=== PATIENT | female | born 1990 | race Caucasian/White ===

== ENCOUNTER 2017-03-15 04:13 | Emergency (ER) | payer OTHER ==
[~2017-03-15] VITALS: Ht 167.6 cm; Wt 73.0 kg
[~2017-03-15 04:13] MED LIST: IBUP-103 PO; OMEP40CA PO; ONDA4TAB46 PO
[2017-03-15 04:19] VITALS: TEMP 36.7; Ht 167.6 cm; Wt 73.0 kg
[2017-03-15] MEDS ORDERED: ONDANSETRON INJ 2 MG/ML 2 ML VIAL IV STA (04:28)
[2017-03-15] MEDS ORDERED: CEFTRIAXONE SOD INJ 1 GM ADDVIAL IV STA (04:28)
[2017-03-15 04:49] LABS: BASO % 0.2 %; BASO ABS # 0.03 K/uL (0-0.2); COMPLETE YES; EOS % 0.6 %; HEMATOCRIT 41.3 % (37-47); IG% 0.4 %; LYMPH % 16.7 %; LYMPH ABS # 2.06 K/uL (1.2-3.4); MEAN CORPUSCULAR HGB CONC 33.7 g/dl (32-36); MEAN PLATELET VOLUME 8.9 fL (7.4-10.4); MONO % 4.9 %; NEUT % 77.2 %; PLATELET COUNT 283 K/uL (130-400); RED BLOOD COUNT 4.49 M/uL (4.2-5.4); WHITE BLOOD COUNT 12.33 K/uL (4.8-10.8)
[2017-03-15] MEDS ORDERED: SODIUM CHLORIDE 0.9% 1000ML 1,000 ML IV STA ×4 (04:54→06:47)
[2017-03-15] MEDS ORDERED: RANI1TAB77 PO (04:56)
[2017-03-15] MEDS ORDERED: ALPR-411 PO (04:56)
[2017-03-15] MEDS ORDERED: FLUO20CA35 PO (04:56)
[2017-03-15] MEDS ORDERED: ONDA4TAB46 PO (04:57)
[2017-03-15 05:06] LABS: BUN/CREATININE RATIO 18.7 (10-20); CALCIUM 8.7 mg/dl (8.5-10.1); CREATININE 0.85 mg/dl (0.60-1.20); POTASSIUM 3.3 mmol/L (3.5-5.1)
[2017-03-15 05:23] LABS: MANUAL MICROSCOPIC REQUIRED? NO; REVIEW REQ? NO; URINE APPEARANCE TURBID (CLEAR); URINE BILIRUBIN NEG (NEG); URINE COLOR YELLOW; URINE EPITHELIAL CELL AUTO >30 /lpf (0-5); URINE NITRITE POS (NEG); URINE PH 6.5 (4.5-7.5); URINE SPECIFIC GRAVITY 1.022 (1.000-1.030); UROBILINOGEN NEG (NEG); ZZUR CULT IF INDIC CLEAN CATCH YES
[2017-03-15] MEDS ORDERED: DiphenhydrAMINE HCL 50 MG/ML VIAL ONE (05:44)
[2017-03-15] MEDS ORDERED: LORAZEPAM 2 MG/ML 1 ML VIAL IV STA (05:45)
[2017-03-15] MEDS ORDERED: POTASSIUM CHLORIDE 10 MEQ TABCR PO STA (05:46)
[2017-03-15] MEDS ORDERED: LORAZEPAM 2 MG/ML 1 ML VIAL ONE (05:46)
[2017-03-15] MEDS ORDERED: ATIVAN 1MG HOMEPACK PO ONE (06:30)
[2017-03-15] MEDS ORDERED: ONDANSETRON HOME PACK 4MG OD TAB PO ONE (06:30)
[2017-03-15] MEDS ORDERED: CEPHALEXIN 500MG HOME PACK 1 EA BTL PO ONE (06:30)
[2017-03-15] MEDS ORDERED: CEFD1CAP14 PO (06:46)
[2017-03-15] MEDS ORDERED: PHEN-876 PO (06:46)
[2017-03-15 07:52] VITALS: BP 125/79; PULSE 110; O2SAT 97
--- NOTE | 2017-03-15 13:58 | EMERGENCY ROOM VISIT NOTE ---
ED Visit Note Received the patient this morning in signout from Anuja Day PA-C. I did review all records. Chem states she had everything ready to go, however due to the patient's elevated lactic acid last night, she would like to run 3 L of fluid and rechecked the lactic acid at that time. She states as long as the lactic acid is normal, the patient should be okay to be discharged. The lactic acid is elevated, the patient is to consider admission into the hospital for evaluation and management of her urinary tract infection/possible pyelonephritis. Misinformed from the nurse that the patient's repeat lactic acid was 1.64. This was back to the normal range, and the nurse also said she suspected that the previous lactic acid was drawn with a tourniquet on the arm, which could have skewed the results. The patient is feeling fine, and would like to be discharged at this time. I did discuss the results with the patient and discharge instructions. The patient was discharged home in good condition.
--- NOTE | 2017-03-15 21:59 | EMERGENCY ROOM VISIT NOTE ---
History First contact with patient: 04:21 Chief Complaint: URINARY SYMPTOMS Stated Complaint: UTI,VOMITING Nursing Triage Summary: pt c/o uti sx for a couple days then they went away and came back, frequency and burning, and pain. pt woke this 0200 with n/v and shaking History of Present Illness The patient is a 26 year old female who presents to the Emergency Room with complaints of nausea, vomiting, subjective fever and chills with urinary symptoms for the past 3 days. Vomiting and fever and chills started tonight. Patient had a bladder infection last month and was given Cipro. Patient denies chest pain, dyspnea, back pain, flank pain, diarrhea, . Review of Systems See HPI for pertinent positives & negatives. A total of 10 systems reviewed and were otherwise negative. Past Medical/Surgical History Concussion Social History Smoking Status: Never Smoker Alcohol Use: none Drug Use: none Current/Historical Medications Scheduled Cefdinir (Omnicef), 300 MG PO Q12H Fluoxetine (Prozac), 20 MG PO DAILY Phenazopyridine HCl (Pyridium), 200 MG PO TID Ranitidine HCl (Ranitidine [address]), 150 MG PO BID Scheduled PRN Alprazolam (Xanax), 0.25 MG PO DAILY PRN for Anxiety Ondansetron Hcl (Zofran), 4 MG PO Q6 PRN for Nausea Physical Exam Vital Signs Date Time Temp Pulse Resp B/P (MAP) Pulse Ox O2 Delivery O2 Flow Rate FiO2 03/15/17 07:52 110 16 125/79 97 03/15/17 05:57 96 22 138/87 98 Room Air 03/15/17 04:19 36.7 98 18 164/98 99 Room Air Physical Exam VITALS: Vitals are noted on the nurse's note and reviewed by myself. Vital signs hypertensive GENERAL: Pleasant female, in no acute distress, nondiaphoretic, well-developed well-nourished. SKIN: The skin was without rashes, erythema, edema, or bruising. There is no tenting of the skin. Capillary reflex less than 2 seconds. HEAD: Normocephalic atraumatic. EARS: External auditory canals clear, tympanic membranes pearly maxwell without erythema or effusion bilaterally. EYES: Pupils equal round and reactive to light and accommodation. Conjunctivae without injection, sclerae without icterus. Extraocular movements intact. NOSE: Patent, turbinates without inflammation or discharge. MOUTH: Mucous membranes mildly dry. Pharynx without erythema or exudate. Uvula midline. Airway patent. Tongue does not deviate. NECK: Supple without nuchal rigidity. No lymphadenopathy. No thyromegaly. Cervical spine is nontender. No JVD. HEART: Regular rate and rhythm without murmurs gallops or rubs. LUNGS: Clear to auscultation bilaterally without wheezes, rales or rhonchi. No dullness to percussion. No retractions or accessory muscle use. ABDOMEN: Positive bowel sounds x 4. Normal tympanic percussion. Soft, nontender, without masses or organomegaly. Beckman sign negative. No guarding or rebound tenderness. No CVA tenderness MUSCULOSKELETAL: No muscle atrophy, erythema, or edema noted. NEURO: Patient was alert and oriented to person place and time. Normal sensation to light and sharp touch. No focal neurological deficits. Medical Decision & Procedures Laboratory Results 03/15/17 04:35 Red Blood Count 4.49, Mean Corpuscular Volume 92.0, Mean Corpuscular Hemoglobin 31.0, Mean Corpuscular Hemoglobin Concent 33.7, Mean Platelet Volume 8.9, Neutrophils (%) (Auto) 77.2, Lymphocytes (%) (Auto) 16.7, Monocytes (%) (Auto) 4.9, Eosinophils (%) (Auto) 0.6, Basophils (%) (Auto) 0.2, Neutrophils # (Auto) 9.51, Lymphocytes # (Auto) 2.06, Monocytes # (Auto) 0.61, Eosinophils # (Auto) 0.07, Basophils # (Auto) 0.03 03/15/17 04:35 Test 03/15/17 04:21 03/15/17 04:30 03/15/17 04:35 03/15/17 07:33 Urine Test NEG (NEG) Urine Color YELLOW Urine Appearance TURBID (CLEAR) Urine pH 6.5 (4.5-7.5) Urine Specific [place] 1.022 (1.000-1.030) Urine Protein 2+ (NEG) Urine Glucose (UA) NEG (NEG) Urine Ketones NEG (NEG) Urine Occult Blood 1+ (NEG) Urine Nitrite POS (NEG) Urine Bilirubin NEG (NEG) Urine Urobilinogen NEG (NEG) Urine Leukocyte Esterase LARGE (NEG) Urine WBC (Auto) >30 /hpf (0-5) Urine RBC (Auto) >30 /hpf (0-4) Urine Hyaline Casts (Auto) 5-10 /lpf (0-5) Urine Epithelial Cells (Auto) >30 /lpf (0-5) Urine Bacteria (Auto) 4+ (NEG) White Blood Count 12.33 K/uL (4.8-10.8) Red Blood Count 4.49 M/uL (4.2-5.4) Hemoglobin 13.9 g/dL (12.0-16.0) Hematocrit 41.3 % (37-47) Mean Corpuscular Volume 92.0 fL (80-100) Mean Corpuscular Hemoglobin 31.0 pg (25-34) Mean Corpuscular Hemoglobin Concent 33.7 g/dl (32-36) Platelet Count 283 K/uL (130-400) Mean Platelet Volume 8.9 fL (7.4-10.4) Neutrophils (%) (Auto) 77.2 % Lymphocytes (%) (Auto) 16.7 % Monocytes (%) (Auto) 4.9 % Eosinophils (%) (Auto) 0.6 % Basophils (%) (Auto) 0.2 % Neutrophils # (Auto) 9.51 K/uL (1.4-6.5) Lymphocytes # (Auto) 2.06 K/uL (1.2-3.4) Monocytes # (Auto) 0.61 K/uL (0.11-0.59) Eosinophils # (Auto) 0.07 K/uL (0-0.5) Basophils # (Auto) 0.03 K/uL (0-0.2) RDW Standard Deviation 41.7 fL (36.4-46.3) RDW Coefficient of Variation 12.3 % (11.5-14.5) Immature Granulocyte % (Auto) 0.4 % Immature Granulocyte # (Auto) 0.05 K/uL (0.00-0.02) Anion Gap 12.0 mmol/L (3-11) Est Creatinine Clear Calc Drug Dose 104.3 ml/min Estimated GFR () 111.2 Estimated GFR (Non- 95.9 BUN/Creatinine Ratio 18.7 (10-20) Calcium Level 8.7 mg/dl (8.5-10.1) Bedside Lactic Acid Venous 1.62 mmol/L (0.90-1.70) Medications Administered Medications (Trade) Dose Ordered Sig/Richard Route Start Time Stop Time Status Last Admin Dose Admin Ondansetron HCl (Zofran Inj) 4 mg NOW STAT IV 03/15/17 04:28 03/15/17 04:30 DC 03/15/17 05:00 4 MG Ceftriaxone Sodium (Rocephin Inj) 1 gm NOW STAT IV 03/15/17 04:28 03/15/17 04:30 DC 03/15/17 05:00 1 GM Sodium Chloride 1,000 ml @ 999 mls/hr Q1H1M STAT IV 03/15/17 04:54 03/15/17 05:54 DC 03/15/17 05:00 999 MLS/HR Sodium Chloride 1,000 ml @ 999 mls/hr Q1H1M STAT IV 03/15/17 05:37 03/15/17 06:37 DC 03/15/17 06:00 999 MLS/HR Lorazepam (Ativan Inj) 1 mg NOW STAT IV 03/15/17 05:45 03/15/17 05:46 DC 03/15/17 05:54 1 MG Potassium Chloride (Klor-Con M10) 20 meq NOW STAT PO 03/15/17 05:46 03/15/17 05:47 DC 03/15/17 05:59 20 MEQ ED Course Prior records/ancillary studies reviewed. Triage Nursing notes reviewed. Additional history obtained from family. The patient's history was concerning for vomiting and urinary symptoms. Differential diagnosis: Etiologies such as UTI, pyelonephritis, gastritis, obstruction, infections, as well as others were entertained. Physical examination findings: As above. ER treatment provided: IV fluids, Zofran, Rocephin On reassessment the patient felt better. Diagnostics interpreted by me: The labs revealed leukocytosis, hypokalemia and urine consistent with infections and for culture The nurse accidentally ran a lactic acid and this was elevated. Repeat was ordered and patient was signed out to Anya Denny PA-C pending repeat lactic acid and 3 L of IV fluids. Repeat was improved. This most likely was from dehydration and from laboratory area. Patient had no signs of sepsis. She is well-appearing. She is afebrile and nontoxic. She had no CVA tenderness. Exam and history seem consistent with early pyelonephritis with vomiting. Patient was offered admission and declined. I felt this is reasonable. She is afebrile and nontoxic and drinking fluids and eating. Patient became anxious is given Ativan. She felt much better. Patient had no CVA tenderness. She felt much better after being medicated as above. She was started on antibiotics. Urine culture sent. She is advised to take medications as directed and to follow-up family care in a few days or here in the ER sooner for abdominal pain, fevers, vomiting, back pain, worsening signs or symptoms or as needed. By the evaluation outlined above emergent etiologies such as obstruction, electrolyte abnormality, as well as others were deemed relatively unlikely. The pt informed about the findings as listed above. All questions were answered and pleased with the treatment. Return instructions were outlined and the patient was discharged in stable condition. Outpatient prescription management: Marcos Smart Referral: The patient was referred back to their primary care physician for follow-up in 2 to 3 days for a recheck of the current condition. Case reviewed with my attending. Medical Decision As above Medication Reconcilliation Current Medication List: was personally reviewed by me Blood Pressure Screening Patient's blood pressure: Normal blood pressure Impression Primary Impression: Pyelonephritis Additional Impression: Vomiting Departure Information Dispostion Home / Self-Care Condition GOOD Prescriptions Phenazopyridine HCl (Pyridium) 200 Mg Tab 200 MG PO TID for 2 Days, #6 TAB Prov: Kelsey Day .[place] 03/15/17 Cefdinir (Omnicef) 300 Mg Cap 300 MG PO Q12H for 10 Days, #20 CAP Prov: Kelsey Day PA-C 03/15/17 Referrals Lucas Soares III, M.D. (PCP) Patient Instructions My [facility] Additional Instructions DO NOT drive, drink alcohol, operate machinery, or perform dangerous activities today. You were given medications in the ER that can affect your ability to safely function or operate a vehicle. Omnicef 300 mg: Take one pill 2 daily for 10 days for your infection. All antibiotics can cause diarrhea. If this occurs and you feel worse or it does not resolve in 1-2 days follow up with your doctor or return to the Emergency Department as this could be signs of serious underlying problems. Any medication can cause an allergic reaction, stop the pills immediately and return to the ER for rash, hives, breathing difficulties, or swelling. Pyridium 200mg: Take one pill three times daily as needed for urinary discomfort. This medication will turn your urine orange. This is normal and nothing to be concerned about. Zofran 4 mg: Take one every six hours as needed for nausea. Avoid alcohol, operating machinery or dangerous equipment, working on ladders or roofs, DRIVING , or situations where being under the influence may be dangerous. Ibuprofen(Motrin, Advil) may be used for fever or pain. Use 600mg every six hours as needed. Take with food. Avoid using more than 2400mg in a 24 hour period. Do not use 2400mg per day for more than three consecutive days without physician direction. Prolonged inappropriate use can lead to stomach upset or ulcers. (AND/OR) Acetaminophen(Tylenol) may be used for fever or pain. Use 1000mg every six hours as needed. Avoid using more than 3000mg in a 24 hour period. Rest and drink plenty of fluids as tolerated. Slow sips of water or sports drinks are recommended instead of large amounts all at once. Continue current medications. Once your stomach is settled start with a clear liquid diet (jello, soup broth, etc.) and then advance as tolerated. You should avoid full, heavy meals for about 24 hrs from the time your symptoms resolved. Return to the ER immediately for worsening or persistent abdominal/back pain, vomiting, fevers, worsening of your condition, or as needed. Follow up with your primary physician within 2-3 days for a recheck of the current condition. Problem Qualifiers Additional Impression: Vomiting Vomiting type: unspecified Vomiting Intractability: non-intractable Nausea presence: with nausea Qualified Codes: R11.2 - Nausea with vomiting, unspecified
--- NOTE | 2017-03-17 12:38 | Pharmacy Progress Note ---
ED Pharmacist Culture FollowUp Date of Service: Mar 17, 2017. Patient was sent home with a prescription for omnicef 300mg BID X 10 days, which should cover the E. Coli growing from the patient's urine culture.
[2017-03-19] MEDS ORDERED: ONDA8TAB62 SL (09:52)
[2017-03-19] MEDS ORDERED: CPR500 PO (09:52)
== END 2017-03-15 07:52 | disposition home or self-care (01) ==
LOC: C.EDB 04:14
DX: N12 Tubulo-interstitial nephritis, not specified as acute or chronic (principal); E86.0 Dehydration; F41.9 Anxiety disorder, unspecified; Z79.899 Other long term (current) drug therapy

== ENCOUNTER 2017-03-18 08:46 | Observation (INO) | payer OTHER ==
[~2017-03-18] VITALS: Ht 167.6 cm; Wt 73.8 kg
[~2017-03-18 08:46] MED LIST changes: +ALPR-411 PO; +CEFD1CAP14 PO; +FLUO20CA35 PO; -IBUP-103 PO; -OMEP40CA PO; +PHEN-876 PO; +RANI1TAB77 PO
[2017-03-18] MEDS ORDERED: PHEN-939 PO (09:07)
[2017-03-18] MEDS ORDERED: ONDANSETRON INJ 2 MG/ML 2 ML VIAL IV STA ×2 (09:26→12:19)
[2017-03-18] MEDS ORDERED: SODIUM CHLORIDE 0.9% 1000ML 1,000 ML IV STA (09:26)
[2017-03-18] MEDS ORDERED: CEFTRIAXONE SOD INJ 1 GM ADDVIAL IV STA (09:26)
[2017-03-18] MEDS ORDERED: MoRPHine SULFATE 4 MG/ML 1 ML CARP\\VIAL IV STA ×2 (09:26→13:35)
[2017-03-18 09:44] LABS: PREG INTERNAL NEGATIVE QC NEG CLEAR BACKGROUND; PREG INTERNAL POSITIVE QC POS CONTROL LINE
[2017-03-18 09:49] LABS: URINE APPEARANCE CLEAR (CLEAR); URINE BILIRUBIN NEG (NEG); URINE COLOR DK YELLOW; URINE EPITHELIAL CELL AUTO >30 /lpf (0-5); URINE NITRITE POS (NEG); URINE SPECIFIC GRAVITY 1.021 (1.000-1.030); UROBILINOGEN NEG (NEG); ZZUR CULT IF INDIC CLEAN CATCH NO
[2017-03-18 09:55] LABS: BASO % 0.7 %; BASO ABS # 0.04 K/uL (0-0.2); COMPLETE YES; HEMATOCRIT 40.6 % (37-47); IG% 0.2 %; LYMPH % 30.1 %; LYMPH ABS # 1.85 K/uL (1.2-3.4); MEAN CELL VOLUME 92.3 fL (80-100); MEAN CORPUSCULAR HGB CONC 32.5 g/dl (32-36); MEAN PLATELET VOLUME 9.4 fL (7.4-10.4); MONO % 6.5 %; NEUT % 61.5 %; PLATELET COUNT 280 K/uL (130-400); WHITE BLOOD COUNT 6.15 K/uL (4.8-10.8)
[2017-03-18 10:03] LABS: MANUAL MICROSCOPIC REQUIRED? NO; REVIEW REQ? NO
[2017-03-18 10:12] LABS: BUN/CREATININE RATIO 20.7 (10-20); C-REACTIVE PROTEIN 0.55 mg/dl (0-0.29); CREATININE 0.67 mg/dl (0.60-1.20); MAGNESIUM 2.2 mg/dl (1.8-2.4); POTASSIUM 3.9 mmol/L (3.5-5.1)
[2017-03-18 10:16] LABS: ALB/GLOB RATIO 1.2 (0.9-2); CKMB/CK RATIO 0.6 (0-3.0)
--- NOTE | 2017-03-18 10:35 | DIAGNOSTIC IMAGING REPORT ---
RENAL ULTRASOUND CLINICAL HISTORY: Flank pain. Urinary symptoms. COMPARISON STUDY: CT of the abdomen and pelvis March 28, 2016. TECHNIQUE: Sonography of the kidneys and the urinary bladder was performed. FINDINGS: The right kidney measures 11.3 x 4.3 x 5.7 cm and the left measures 11.1 x 5.7 x 4.7 cm. There is no hydronephrosis. No calculi or masses are identified by sonography. Renal echogenicity, size and cortical thickness are normal. Both ureteral jets were identified. IMPRESSION: Normal renal ultrasound. No hydronephrosis. Electronically signed by: Houston Romero M.D. 03/18/2017 10:34 AM Dictated Date/Time: 03/18/2017 10:33 AM
[2017-03-18] MEDS ORDERED: ACETAMINOPHEN 500 MG TAB PO STA (11:19)
--- NOTE | 2017-03-18 13:34 | DIAGNOSTIC IMAGING REPORT ---
CT SCAN OF THE BRAIN WITHOUT IV CONTRAST CLINICAL HISTORY: Headache. Vomiting. Head injury. COMPARISON STUDY: CT of the brain dated 03/28/2016. TECHNIQUE: Unenhanced axial CT scan of the brain is performed from the vertex to the skull base. A dose lowering technique was utilized adhering to the principles of ALARA. CT DOSE: 638.56 mGycm FINDINGS: Brain parenchyma: The brain parenchyma is normal in appearance. There is no hemorrhage, mass effect, or evidence of acute territorial ischemia by CT criteria. Leon-white matter is preserved. No extra-axial fluid collection is seen. Ventricles, sulci, cisterns: Normal in configuration. Intracranial vasculature: The visualized intracranial vasculature at the skull base is normal in appearance. Calvarium: There is no depressed calvarial fracture. Sinuses and mastoids: The visualized paranasal sinuses are clear. The mastoid air cells are well pneumatized. Orbits: The bony orbits are grossly intact. IMPRESSION: No acute intracranial abnormality. Electronically signed by: Arsalan Welch M.D. 03/18/2017 1:32 PM Dictated Date/Time: 03/18/2017 1:30 PM
[2017-03-18] MEDS ORDERED: KETOROLAC TROMETHAMINE 15 MG/ML VIAL IV. PRN (15:00)
[2017-03-18] MEDS ORDERED: ALPRAZOLAM 0.5 MG TAB PO PRN (15:00)
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
[2017-03-18] MEDS ORDERED: IV FLUIDS COMPLETED PRN (16:15)
[2017-03-18 17:20] VITALS: BP 141/95; PULSE 82; TEMP 36.8; O2SAT 98; Ht 167.6 cm; Wt 73.8 kg
[2017-03-18] MEDS: ONDANSETRON INJ 2 MG/ML 2 ML VIAL IV PRN (18:03)
[2017-03-18] MEDS: SODIUM CHLORIDE 0.9% 1000ML 1,000 ML IV SCH (18:04)
[2017-03-18] MEDS: KETOROLAC TROMETHAMINE 30 MG/ML VIAL IV PRN (18:04)
--- NOTE | 2017-03-18 18:54 | EMERGENCY ROOM VISIT NOTE ---
History First contact with patient: : Chief Complaint: NAUSEA Stated Complaint: HEADACHE, NAUSEA & VOMITING Nursing Triage Summary: pt to the ED after being seen here on wednesday dx with kidney infection and has been taking ABX since then, today pt is c/o continued back pain DAWKINS and nausea History of Present Illness The patient is a 26 year old female who presents to the Emergency Room via private vehicle with complaints of "headache, nausea and vomiting". The patient states that she was seen her on Wednesday, and diagnosed with pyelonephritis. She states that she was doing well with the Omnicef and Zofran , until today she noted that she had return of her symptoms, to include the urinary symptoms, as well as additionally in an intense headache. She also notes that today while at the gas station she forgot how to pump gas. She was diagnosed with concussion about 3 weeks ago, after bumping heads with somebody well out tubing. Review of Systems A complete 10-point Review of Systems was discussed with the patient, with pertinent positives and negatives listed in the History of Present Illness. All remaining Review of Systems questions can be considered negative unless otherwise specified. Past Medical/Surgical History Medical Problems: (1) Acid reflux (2) Anxiety Social History Smoking Status: Unknown if Ever Smoked Alcohol Use: none Drug Use: none Occupation Status: employed Current/Historical Medications Scheduled Cefdinir (Omnicef), 300 MG PO Q12H Fluoxetine (Prozac), 20 MG PO DAILY Phenazopyridine Hcl (Pyridium), 1 TAB PO Q8 Ranitidine HCl (Ranitidine [address]), 150 MG PO BID Scheduled PRN Alprazolam (Xanax), 0.25 MG PO DAILY PRN for Anxiety Physical Exam Vital Signs Date Time Temp Pulse Resp B/P (MAP) Pulse Ox O2 Delivery O2 Flow Rate FiO2 03/18/17 14:01 76 03/18/17 13:33 93 16 121/84 97 03/18/17 09:56 88 03/18/17 09:52 97 Room Air 03/18/17 09:52 84 17 137/92 96 Room Air 03/18/17 08:55 36.8 98 20 129/100 97 Pain Rating (0-10): 5.0 Physical Exam VITAL SIGNS - Vital signs and nursing notes were reviewed. Stable. GENERAL -26-year-old female appearing her stated age who is in no acute distress. Communicates well with provider and answers questions appropriately. SKIN - Without rashes. No petechial rashes. HEAD - NC/AT. EYES - PERRL with EOMI bilaterally. Sclera anicteric. EARS - No deformities of external structures noted on gross examination bilaterally. NOSE - Midline and without cyanosis. No epistaxis or purulent drainage noted. NECK - Neck with FROM. Supple to palpation. No evidence of meningitis on exam. LUNGS - Chest wall symmetric without accessory muscle use, intercostals retractions, or central cyanosis. Normal vesicular breath sounds CTA B/L. No wheezes, rales, or rhonchi appreciated. CARDIAC - RRR with S1/S2. No murmur, rubs, or gallops appreciated. ABDOMEN - Abdominal contour normal without pulsations or visible masses. BS normoactive all four quadrants. No tenderness, palpable masses, hepatosplenomegaly, or ascites noted. +Cva tenderness. EXTREMITIES - No clubbing or peripheral cyanosis. No pretibial edema present. + 5/5 strength noted in UE/LE bilaterally. NEUROLOGIC - Cranial nerves II through XII grossly intact. Sensory intact to light touch throughout. PSYCH - A&O, and cooperates fully with examiner. Pt is very pleasant and interacts well with examiner. Medical Decision & Procedures ER Provider Diagnostic Interpretation: RENAL ULTRASOUND CLINICAL HISTORY: Flank pain. Urinary symptoms. COMPARISON STUDY: CT of the abdomen and pelvis March 28, 2016. TECHNIQUE: Sonography of the kidneys and the urinary bladder was performed. FINDINGS: The right kidney measures 11.3 x 4.3 x 5.7 cm and the left measures 11.1 x 5.7 x 4.7 cm. There is no hydronephrosis. No calculi or masses are identified by sonography. Renal echogenicity, size and cortical thickness are normal. Both ureteral jets were identified. IMPRESSION: Normal renal ultrasound. No hydronephrosis. Electronically signed by: Houston Romero M.D. 03/18/2017 10:34 AM Dictated Date/Time: 03/18/2017 10:[address] SCAN OF THE BRAIN WITHOUT IV CONTRAST CLINICAL HISTORY: Headache. Vomiting. Head injury. COMPARISON STUDY: CT of the brain dated 03/28/2016. TECHNIQUE: Unenhanced axial CT scan of the brain is performed from the vertex to the skull base. A dose lowering technique was utilized adhering to the principles of ALARA. CT DOSE: 638.56 mGycm FINDINGS: Brain parenchyma: The brain parenchyma is normal in appearance. There is no hemorrhage, mass effect, or evidence of acute territorial ischemia by CT criteria. Leon-white matter is preserved. No extra-axial fluid collection is seen. Ventricles, sulci, cisterns: Normal in configuration. Intracranial vasculature: The visualized intracranial vasculature at the skull base is normal in appearance. Calvarium: There is no depressed calvarial fracture. Sinuses and mastoids: The visualized paranasal sinuses are clear. The mastoid air cells are well pneumatized. Orbits: The bony orbits are grossly intact. IMPRESSION: No acute intracranial abnormality. Electronically signed by: Arsalan Welch M.D. 03/18/2017 1:32 PM Dictated Date/Time: 03/18/2017 1:30 PM Laboratory Results 03/18/17 09:37 Red Blood Count 4.40, Mean Corpuscular Volume 92.3, Mean Corpuscular Hemoglobin 30.0, Mean Corpuscular Hemoglobin Concent 32.5, Mean Platelet Volume 9.4, Neutrophils (%) (Auto) 61.5, Lymphocytes (%) (Auto) 30.1, Monocytes (%) (Auto) 6.5, Eosinophils (%) (Auto) 1.0, Basophils (%) (Auto) 0.7, Neutrophils # (Auto) 3.79, Lymphocytes # (Auto) 1.85, Monocytes # (Auto) 0.40, Eosinophils # (Auto) 0.06, Basophils # (Auto) 0.04 03/18/17 09:37 Test 03/18/17 09:11 03/18/17 09:37 Urine Color DK YELLOW Urine Appearance CLEAR (CLEAR) Urine pH 7.0 (4.5-7.5) Urine Specific [place] 1.021 (1.000-1.030) Urine Protein NEG (NEG) Urine Glucose (UA) NEG (NEG) Urine Ketones NEG (NEG) Urine Occult Blood NEG (NEG) Urine Nitrite POS (NEG) Urine Bilirubin NEG (NEG) Urine Urobilinogen NEG (NEG) Urine Leukocyte Esterase TRACE (NEG) Urine WBC (Auto) 1-5 /hpf (0-5) Urine RBC (Auto) 10-30 /hpf (0-4) Urine Hyaline Casts (Auto) 1-5 /lpf (0-5) Urine Epithelial Cells (Auto) >30 /lpf (0-5) Urine Bacteria (Auto) NEG (NEG) Urine Test NEG (NEG) White Blood Count 6.15 K/uL (4.8-10.8) Red Blood Count 4.40 M/uL (4.2-5.4) Hemoglobin 13.2 g/dL (12.0-16.0) Hematocrit 40.6 % (37-47) Mean Corpuscular Volume 92.3 fL (80-100) Mean Corpuscular Hemoglobin 30.0 pg (25-34) Mean Corpuscular Hemoglobin Concent 32.5 g/dl (32-36) Platelet Count 280 K/uL (130-400) Mean Platelet Volume 9.4 fL (7.4-10.4) Neutrophils (%) (Auto) 61.5 % Lymphocytes (%) (Auto) 30.1 % Monocytes (%) (Auto) 6.5 % Eosinophils (%) (Auto) 1.0 % Basophils (%) (Auto) 0.7 % Neutrophils # (Auto) 3.79 K/uL (1.4-6.5) Lymphocytes # (Auto) 1.85 K/uL (1.2-3.4) Monocytes # (Auto) 0.40 K/uL (0.11-0.59) Eosinophils # (Auto) 0.06 K/uL (0-0.5) Basophils # (Auto) 0.04 K/uL (0-0.2) RDW Standard Deviation 41.3 fL (36.4-46.3) RDW Coefficient of Variation 12.2 % (11.5-14.5) Immature Granulocyte % (Auto) 0.2 % Immature Granulocyte # (Auto) 0.01 K/uL (0.00-0.02) Anion Gap 8.0 mmol/L (3-11) Est Creatinine Clear Calc Drug Dose 121.1 ml/min Estimated GFR () 142.6 Estimated GFR (Non- 123.0 BUN/Creatinine Ratio 20.7 (10-20) Lactic Acid Level 1.3 mmol/L (0.4-2.0) Calcium Level 9.0 mg/dl (8.5-10.1) Magnesium Level 2.2 mg/dl (1.8-2.4) Total Bilirubin 0.3 mg/dl (0.2-1) Aspartate Amino Transf (AST/SGOT) 22 U/L (15-37) Alanine Aminotransferase (ALT/SGPT) 30 U/L (12-78) Alkaline Phosphatase 66 U/L (45-117) Total Creatine Kinase 93 U/L (26-192) Creatine Kinase MB 0.6 ng/ml (0.5-3.6) Creatine Kinase MB Ratio 0.6 (0-3.0) C-Reactive Protein 0.55 mg/dl (0-0.29) Total Protein 8.1 gm/dl (6.4-8.2) Albumin 4.4 gm/dl (3.4-5.0) Globulin 3.7 gm/dl (2.5-4.0) Albumin/Globulin Ratio 1.2 (0.9-2) Medications Administered Medications (Trade) Dose Ordered Sig/Richard Route Start Time Stop Time Status Last Admin Dose Admin Morphine Sulfate (MoRPHine SULFATE INJ) 4 mg NOW STAT IV 03/18/17 09:26 03/18/17 09:28 DC 03/18/17 09:49 4 MG Ondansetron HCl (Zofran Inj) 4 mg NOW STAT IV 03/18/17 09:26 03/18/17 09:28 DC 03/18/17 09:49 4 MG Sodium Chloride 1,000 ml @ 999 mls/hr Q1H1M STAT IV 03/18/17 09:26 03/18/17 10:26 DC 03/18/17 09:48 999 MLS/HR Ceftriaxone Sodium (Rocephin Inj) 1 gm NOW STAT IV 03/18/17 09:26 03/18/17 09:29 DC 03/18/17 09:49 1 GM Acetaminophen (Tylenol Tab) 500 mg NOW STAT PO 03/18/17 11:19 03/18/17 11:20 DC 03/18/17 11:25 500 MG Ondansetron HCl (Zofran Inj) 4 mg NOW STAT IV 03/18/17 12:19 03/18/17 12:20 DC 03/18/17 12:31 4 MG Morphine Sulfate (MoRPHine SULFATE INJ) 4 mg NOW STAT IV 03/18/17 13:35 03/18/17 13:36 DC 03/18/17 13:44 4 MG Medical Decision Patient was seen and evaluated as above. She presents to us today, and is nontoxic on examination. She does appear to have chills. She is nontoxic on exam. Vital signs are stable. Previous visit was extensively reviewed. She was here for pyelonephritis. Offered admission, and respectfully declined at that time. Today, her symptoms appear to return, and also she had an episode where she was forgetting how to pump gas today. She was admitted with a concussion 3 weeks ago. Her blood work results here today are essentially unremarkable. Her urine does reveal nitrites, was given 1 g of Unasyn, and normal saline. She was also given morphine for pain. I suspect the headache is likely secondary to concussion, and is been exacerbated secondary to dehydration from the infection. Blood cultures pending, lactic acid negative. Ultrasound of the kidneys is also negative. Because the patient's indicated that she did provide a pump gas earlier today about detention through her stay, I didn't recommend a CT scan of the head, to rule out intracranial pathology secondary to her concussion 3 weeks ago. This was negative for acute process. I do suspect concussion, and no intracranial bleeding. She was given Zofran here, and had Zofran yesterday. I do believe that the patient this time should be further evaluated and managed in the inpatient setting secondary to her presentation today. Case was discussed with the hospitalist, and subsequently admitted for further evaluation and management. Please refer to further documentation regarding her stay. In evaluation treatment this patient following differential diagnoses were entertained: Pyelonephritis, UTI, concussion, TIA, CVA, among others. Impression Primary Impression: Pyelonephritis Additional Impressions: Nausea & vomiting History of concussion Headache Departure Information Dispostion Still a Patient Condition FAIR Referrals Lucas Soares III, M.D. (PCP) Forms HOME CARE DOCUMENTATION FORM, IMPORTANT VISIT INFORMATION Patient Instructions [facility] Problem Qualifiers
[2017-03-18] MEDS: ACETAMINOPHEN 325 MG TAB PO PRN (20:52)
[2017-03-18] MEDS: RANITIDINE HCL 150 MG TAB PO SCH (20:52)
[2017-03-18] MEDS: PHENAZOPYRIDINE HCL 200 MG TAB PO SCH (20:52)
[2017-03-18 23:57] VITALS: BP 128/87; PULSE 69; TEMP 36.6; O2SAT 97
[2017-03-19] MEDS: SODIUM CHLORIDE 0.9% 1000ML 1,000 ML IV SCH ×2 (03:33→13:06)
[2017-03-19 05:36] LABS: HEMATOCRIT 34.9 % (37-47); MEAN CELL VOLUME 93.3 fL (80-100); MEAN CORPUSCULAR HEMOGLOBIN 30.2 pg (25-34); MEAN CORPUSCULAR HGB CONC 32.4 g/dl (32-36); PLATELET COUNT 209 K/uL (130-400); RED BLOOD COUNT 3.74 M/uL (4.2-5.4); WHITE BLOOD COUNT 5.56 K/uL (4.8-10.8)
[2017-03-19] MEDS: PHENAZOPYRIDINE HCL 200 MG TAB PO SCH ×2 (05:53→13:06)
[2017-03-19 06:05] LABS: BUN/CREATININE RATIO 19.9 (10-20); CALCIUM 7.7 mg/dl (8.5-10.1); CREATININE 0.69 mg/dl (0.60-1.20); POTASSIUM 3.6 mmol/L (3.5-5.1)
[2017-03-19 07:28] VITALS: BP 136/88; PULSE 69; TEMP 36.6; O2SAT 98
[2017-03-19] MEDS: RANITIDINE HCL 150 MG TAB PO SCH (07:44)
[2017-03-19] MEDS ORDERED: FLUOXETINE HCL 20 MG CAP PO SCH (08:00)
[2017-03-19] MEDS ORDERED: CEFTRIAXONE SOD INJ 1 GM in DEXTROSE 5% ADD-VANTAGE 50ML 50 ML IV SCH (09:00)
[2017-03-19] MEDS: ONDANSETRON INJ 2 MG/ML 2 ML VIAL IV PRN ×2 (09:31→16:21)
[2017-03-19] MEDS: KETOROLAC TROMETHAMINE 30 MG/ML VIAL IV PRN (09:31)
[2017-03-19] MEDS ORDERED: CPR500 PO (09:52)
[2017-03-19] MEDS ORDERED: ONDA8TAB62 SL (09:52)
[2017-03-19] MEDS ORDERED: CIPROFLOXACIN 250 MG TAB PO SCH (10:00)
--- NOTE | 2017-03-19 10:34 | Progress Note ---
Medicine Progress Note Date & Time of Visit: Mar 19, 2017 at 10:19. (Mely Villalobos, P.A.-C.) Subjective Patient seen and examined. Continues to experience nausea and vomiting. Vomited once this morning prior to eating. Is tolerating a regular diet. Endorses new, diffuse abdominal pressure in LLQ & RLQ. Flank pain and urinary symptoms are improving. Headache has resolved. Denies fever, chills, CP, SOB, hematemesis,constipation, diarrhea. (Mely Villalobos, P.A.-C.) Objective Last 8 Hrs Date Time Temp Pulse Resp B/P (MAP) Pulse Ox O2 Delivery O2 Flow Rate FiO2 03/19/17 08:00 Room Air 03/19/17 07:28 36.6 69 18 136/88 (104) 98 Room Air Physical Exam: General Appearance: WD/WN, no apparent distress Head: normocephalic, atraumatic Eyes: normal inspection, PERRL, EOMI ENT: hearing grossly normal, pharynx normal Neck: supple, no JVD, no adenopathy Respiratory/Chest: lungs clear to auscultation. No wheezes, rales or rhonci. No respiratory distress or accessory muscle use Cardiovascular: regular rate, rhythm, no murmur, normal peripheral pulses Abdomen/GI: normal bowel sounds, soft, TTP in LLQ & RLQ Back: Normal inspection. Some bilateral CVA tenderness Extremities/Musculoskelatal: normal inspection, no calf tenderness, normal capillary refill, no pedal edema Neurologic/Psych: alert, normal mood/affect, oriented x 3 Skin: normal color, warm/dry Laboratory Results: Last 24 Hours Test 03/19/17 05:26 White Blood Count 5.56 K/uL Red Blood Count 3.74 M/uL Hemoglobin 11.3 g/dL Hematocrit 34.9 % Mean Corpuscular Volume 93.3 fL Mean Corpuscular Hemoglobin 30.2 pg Mean Corpuscular Hemoglobin Concent 32.4 g/dl RDW Standard Deviation 41.5 fL RDW Coefficient of Variation 12.2 % Platelet Count 209 K/uL Mean Platelet Volume 9.0 fL Sodium Level 140 mmol/L Potassium Level 3.6 mmol/L Chloride Level 106 mmol/L Carbon Dioxide Level 30 mmol/L Anion Gap 4.0 mmol/L Blood Urea Nitrogen 14 mg/dl Creatinine 0.69 mg/dl Est Creatinine Clear Calc Drug Dose 129.2 ml/min Estimated GFR () 141.2 Estimated GFR (Non- 121.8 BUN/Creatinine Ratio 19.9 Random Glucose 75 mg/dl Calcium Level 7.7 mg/dl Date/Time Source Procedure Growth Status 03/19/17 07:15 Urine , Clean Catch Urine Culture Pending Received (Mely Villalobos, P.A.-C.) Assessment & Plan This is a 26yo F with a PMH of anxiety and a recent diagnosis of pyelonephritis who presents with nausea, vomiting and flank pain. Pyelonephritis: resolving -Diagnosed on Wednesday (03/15) -Symptoms resumed today with n/v, flank pain -Leukocytosis has resolved, UA has improved -Renal ultrasound normal -Rocephin, IVF -Zofran for nausea, Tylenol for pain -Urine culture pending -Switched to PO Cipro in anticipation of discharge -Recent urine cx shows e. coli, sensitive to cipro Abdominal pain: -LLQ & RLQ pressure starting today -Tolerating regular diet -Encouraged eating bland foods -Having normal bowel movements -Zofran for nausea, Tylenol for pain Headache: resolved -Likely 2/2 dehydration, concussion -Tylenol, Toradol for pain -IVF resuscitation Tachycardia: -Slight tachycardia -Likely 2/2 anxiety, dehydration -IVF resuscitation -Provided reassurance about conditions Anxiety: -Continue home dose of Prozac, Xanax PRN H/o concussion: -CT head is normal -Has been avoiding intense exercise, screen time -Reassurance DVT Ppx: ranulfo underwood Code status: FULL PCP: Fany Dispo: Plan to discharge home once medically stable Current Inpatient Medications: Current Inpatient Medications Medications (Trade) Dose Ordered Sig/Richard Route Start Time Stop Time Status Last Admin Dose Admin Acetaminophen (Tylenol Tab) 650 mg Q4H PRN PO 03/18/17 15:00 04/17/17 14:59 03/18/17 20:52 650 MG Ondansetron HCl (Zofran Inj) 4 mg Q6H PRN IV 03/18/17 15:00 04/17/17 14:59 03/19/17 09:31 4 MG Sodium Chloride 1,000 ml @ 100 mls/hr Q10H IV 03/18/17 17:30 04/17/17 17:29 9/22/17 03:33 100 MLS/HR Alprazolam (Xanax Tab) 0.25 mg DAILY PRN PO 03/18/17 15:00 04/17/17 14:59 03/18/17 20:52 0.25 MG Fluoxetine HCl (Prozac Cap) 20 mg DAILY PO 03/19/17 08:00 04/18/17 08:59 03/19/17 07:44 20 MG Ranitidine HCl (zANTac TAB) 150 mg BID PO 03/18/17 20:00 04/17/17 20:59 03/19/17 07:44 150 MG Miscellaneous (Iv Fluids Completed) 1 ea PRN PRN N/A 03/18/17 16:15 03/18/18 16:14 Ketorolac Tromethamine (Toradol Inj) 30 mg Q8H PRN IV 03/18/17 16:15 03/23/17 16:14 03/19/17 09:31 30 MG Phenazopyridine HCl (Pyridium Tab) 200 mg Q8 PO 03/18/17 22:00 03/20/17 14:01 03/19/17 05:53 200 MG Ciprofloxacin (Ciprofloxacin Tab) 50 mg Q12H PO 03/19/17 10:00 03/24/17 09:59 UNV (Mely Villalobos, P.A.-C.) ATTENDING ADDENDUM : pt seen and examined in agreement with above symptom of nausea /vomiting has resolved, no fever or chills vitals remains stable no tachycardiac Abx changed to PO Ciprofloxacin -sensitive as per recent urine culture report tolerating diet , offers no other complain stable to be discharged home today Tasia Giron MD (Tasia Giron M.D.)
[2017-03-19 11:24] VITALS: BP 130/88; PULSE 79; TEMP 37; O2SAT 97
--- NOTE | 2017-03-19 11:54 | Discharge Instructions ---
Discharge Instructions Date of Service Mar 19, 2017. Admission Reason for Admission: Headache, Nausea & Vomiting Discharge Discharge Diagnosis / Problem: Resolving pyelonephritis, functional abdominal pain Discharge Goals Goal(s): Decrease discomfort, Improve function Activity Recommendations Activity Limitations: resume your previous activity . Instructions / Follow-Up Instructions / Follow-Up You were admitted for continued treatment of your kidney infection. You received IV fluids and anti-nausea medications. Your kidney ultrasound looks normal. The following medications have been added to your regimen. Please continue all other home medications. -Ciprofloxacin 500mg. Take 1 tablet by mouth every 12 hours for kidney/urinary tract infection. -Ondansetron 8mg. Dissolve 1 tablet under tongue as needed every 6 hours for nausea. Hospital follow-up appt: 03/23/2017 8:50 AM Chioma Palacios DO [facility] Current Hospital Diet Patient's current hospital diet: Regular Diet Discharge Diet Recommended Diet: Regular Diet Pending Studies Studies pending at discharge: no Medical Emergencies . Who to Call and When: Medical Emergencies: If at any time you feel your situation is an emergency, please call 911 immediately. . Non-Emergent Contact Non-Emergency issues call your: Primary Care Provider . . "Provider Documentation" section prepared by Mely Villalobos. . VTE Core Measure Inpt VTE Proph given/why not?: Kathrin Villa
[2017-03-19 15:29] VITALS: BP 138/92; PULSE 70; TEMP 37; O2SAT 97
[2017-03-19] MEDS: ACETAMINOPHEN 325 MG TAB PO PRN (16:20)
--- NOTE | 2017-03-19 17:53 | Discharge Summary ---
Discharge Summary Date of Service Mar 19, 2017. Discharge Summary Admission Date: Mar 18, 2017 at 14:45 Discharge Date: Mar 19, 2017 Discharge Disposition: Home Principal Diagnosis: UTI /NAUSEA /VOMITING Procedures: RENAL USG : IMPRESSION: Normal renal ultrasound. No hydronephrosis. Medication Reconciliation New Medications: Ciprofloxacin (Ciprofloxacin HCl) 500 Mg Tab 1 TAB PO BID for 4 Days, #8 TABS Ondansetron Odt (Zofran Odt) 8 Mg Soltab 8 MG SL Q6H PRN for Nausea, #30 TAB 2 Refills Continued Medications: Alprazolam (Xanax) 0.5 Mg Tab 0.25 MG PO DAILY PRN for Anxiety Fluoxetine (Prozac) 20 Mg Cap 20 MG PO DAILY Phenazopyridine Hcl (Pyridium) Unknown Strength Tab 1 TAB PO Q8 Ranitidine HCl (Ranitidine [address]) 150 Mg Tab 150 MG PO BID Discontinued Medications: Cefdinir (Omnicef) 300 Mg Cap 300 MG PO Q12H for 10 Days, #20 CAP Admission Information HPI (per Admitting provider): This is a 26yo F with a PMH of anxiety and a recent diagnosis of pyelonephritis who presents with nausea, vomiting and flank pain. Patient was seen in the ER on Wednesday, was diagnosed with pyelonephritis and sent home on Omnicef. States that she felt better over the next few days but had nausea and bilateral flank pain upon waking up today. Tried to go to work but after a few episodes of vomiting bilious fluid, she decided to return to the ER for further evaluation. Also endorses an 8/10 pounding frontal headache, lightheadedness and shakiness and feeling dehydrated. PO intake has been minimal over the past few days 2/2 nausea. Continues to experience dysuria. Denies CP, SOB, abd pain, hematura, pyuria. Of note, patient bumped heads with someone while boating/tubing 3 weeks ago and continues to experience intermittent headaches, nausea, vomiting and poor memory /concentration. CT head today is normal. States that she was initially evaluated after the incident by PCP who recommended limiting exercise and screen time for the time being. Physical Exam (per Admitting): General Appearance: + mild distress Head: normocephalic, atraumatic Eyes: normal inspection, PERRL, sclerae normal ENT: hearing grossly normal Neck: supple, no adenopathy, thyroid normal, no JVD, trachea midline Respiratory/Chest: chest non-tender, lungs clear, normal breath sounds, no respiratory distress, no accessory muscle use Cardiovascular: no murmur, + tachycardia Abdomen/GI: normal bowel sounds, non tender, soft, no organomegaly Back: normal inspection, + left CVA tenderness, + right CVA tenderness Extremities/Musculoskelatal: normal inspection, no calf tenderness, normal capillary refill, no pedal edema Neurologic/Psych: no motor/sensory deficits, alert, normal mood/affect, oriented x 3 Skin: normal color, no rash Hospital Course ATTENDING ADDENDUM : pt seen and examined in agreement with above symptom of nausea /vomiting has resolved, no fever or chills vitals remains stable no tachycardiac Abx changed to PO Ciprofloxacin -sensitive as per recent urine culture report tolerating diet , offers no other complain stable to be discharged home today Tasia Giron MD Discharge Instructions Discharge Instructions Date of Service Mar 19, 2017. Admission Reason for Admission: Headache, Nausea & Vomiting Activity Recommendations Activity Limitations: resume your previous activity . Instructions / Follow-Up Instructions / Follow-Up You were admitted for continued treatment of your kidney infection. You received IV fluids and anti-nausea medications. Your kidney ultrasound looks normal. The following medications have been added to your regimen. Please continue all other home medications. -Ciprofloxacin 500mg. Take 1 tablet by mouth every 12 hours for kidney/urinary tract infection. -Ondansetron 8mg. Dissolve 1 tablet under tongue as needed every 6 hours for nausea. Hospital follow-up appt: 03/23/2017 8:50 AM Chioma Palacios DO [facility] Current Hospital Diet Patient's current hospital diet: Regular Diet Discharge Diet Recommended Diet: Regular Diet Pending Studies Studies pending at discharge: no Medical Emergencies . Who to Call and When: Medical Emergencies: If at any time you feel your situation is an emergency, please call 911 immediately. . Non-Emergent Contact Non-Emergency issues call your: Primary Care Provider . . "Provider Documentation" section prepared by Mely Villalobos. . VTE Core Measure Inpt VTE Proph given/why not?: Kathrin Villa Additional Copies To Chioma Palacios D.O.
[2017-03-19 18:09] VITALS: BP 138/92; PULSE 70; TEMP 37; O2SAT 97
== END 2017-03-19 18:30 | disposition home or self-care (01) ==
LOC: C.EDB 08:47 → C.4E 14:45 → ENRESERV 15:19 → C.4E 16:30 → UNDOADMOB 16:30
PROVIDERS: ADMIT Hospitalist; ATTEND Hospitalist
DX: N12 Tubulo-interstitial nephritis, not specified as acute or chronic (principal); R51 Headache; K21.9 Gastro-esophageal reflux disease without esophagitis

== ENCOUNTER → 2017-05-13 | Day surgery (SDC) | payer OTHER ==
[2017-05-12 13:11] VITALS: Ht 167.6 cm; Wt 72.7 kg
[~2017-05-13] VITALS: Ht 167.6 cm; Wt 72.7 kg
[~2017-05-13] MED LIST changes: +ATROPINE SULFATE 0.1 MG/ML 5ML SYR IV PRN; +B-COTAB18 PO; -CEFD1CAP14 PO; +DICY10CA12 PO; +EpHEDrine SULFATE INJ 50 MG/ML AMP IV PRN; -FLUO20CA35 PO; +LIDOCAINE HCL 2% 2 ML VIAL (20MG/ML) ONE; -ONDA4TAB46 PO; -PHEN-876 PO; +PROB1TAB16 PO; +PROPOFOL IV EMULSION 10 MG/ML 20 ML VIAL IV ONE; +PRT/20 PO; +SODIUM CHLORIDE 0.9% 500ML 500 ML IV ONE
--- NOTE | 2017-05-13 10:38 | Endo History and Physical ---
History & Physical Date of Service: May 13, 2017. Chief Complaint: Abd cramping, epigastric pain, RUQ abd pain Referring Physician: Dr Soares History of Present Illness patient with reflux and heartburn symptoms Past Surgical History Hx Cardiac Surgery: No Hx Internal Defibrillator: No Hx Pacemaker: No Hx Abdominal Surgery: Yes () Hx of Implantable Prosthesis: No Hx Post-Op Nausea and Vomiting: No Hx Cancer Surgery: No Hx Thoracic Surgery: No Hx Orthopedic: No Hx Urinary Tract Surgery: No Family History None Social History Smoking Status: Never Smoker Hx Substance Use: No Hx Alcohol Use: Yes (OCCASIONAL) Allergies Coded Allergies: [place] (Verified Allergy, Severe, THROAT SWELLED, 05/12/17) Sulfa Antibiotics (Verified Allergy, Mild, RASH, 05/12/17) Lactose Intolerance (GI) (Verified Adverse Reaction, Unknown, ABDOMINAL PAIN, 05/12/17) Current Medications Reported Home Medications Medications Dose Route/Sig Max Daily Dose Days Date Category Dose Instructions Probiotic (Probiotic Product) 1 Tab Tab 1 Tab PO DAILY 05/12/17 Reported Vitamin B Complex (B-Complex Vitamins) 1 Tab Tab 1 Tab PO DAILY 05/12/17 Reported Dicyclomine Hcl 10 Mg Cap 1 Cap PO TID 05/12/17 Reported NEW PRESCRIPTION, PT HAS NOT STARTED YET Protonix (Pantoprazole Sodium) 20 Mg Tab 20 Mg PO QAM 05/12/17 Reported Xanax (Alprazolam) 0.5 Mg Tab 0.25 Mg PO DAILY PRN 03/15/17 Reported Ranit[address] (Ranitidine HCl) 150 Mg Tab 150 Mg PO BID 03/15/17 Reported Vital Signs Weight (Kilograms): 72.73 Height (Feet): 5 Height (Inches): 6 Date Time Temp Pulse Resp B/P (MAP) Pulse Ox O2 Delivery O2 Flow Rate FiO2 05/13/17 10:26 36.6 80 18 147/87 (107) 100 Room Air Physical Exam General Appearance: no apparent distress Respiratory/Chest: Auscultation: breath sounds normal Cardiovascular: Heart Auscultation: RRR Abdomen: Inspection & Palpation: soft, non-distended Assessment and Plan stable for EGD.
--- NOTE | 2017-05-13 10:55 | Discharge Instructions ---
Endoscopy Patient Instructions Date / Procedure(s) Performed May 13, 2017. EGD Allergy Information Coded Allergies: [place] (Verified Allergy, Severe, THROAT SWELLED, 05/12/17) Sulfa Antibiotics (Verified Allergy, Mild, RASH, 05/12/17) Lactose Intolerance (GI) (Verified Adverse Reaction, Unknown, ABDOMINAL PAIN, 05/12/17) Discharge Date / Findings May 13, 2017. normal stomach and esophagus/ biopsied for H. pylori. Provider Instructions Activity Restrictions - No exercising or heavy lifting for 24 hours. - Do not drink alcohol the day of the procedure. - Do not drive a car or operate machinery until the day after the procedure. - Do not make any important decisions or sign important papers in 24 hours after the procedure. Following Day: - Return to full activity which may include returning to work/school. Diet Start your diet with liquids and light foods (jello, soup, juice, toast). Then eat your usual diet if not nauseated. Treatment For Common After Affects For mild abdominal pain, bloating, or excessive gas: - Rest - Eat lightly - Lie on right side Follow-Up Information Follow-up with Dr Soares as scheduled Anesthesia Information What You Should Know You have had a procedure that required some medicine to reduce anxiety and discomfort. This treatment is called moderate sedation. After receiving the treatment, you may be sleepy, but you will be able to breathe on your own. The effects of the treatment may last for several hours. Follow these instructions along with Activity/Diet recommendations noted above: * Do NOT do anything where dizziness or clumsiness would be dangerous. * Rest quietly at home today, then you can be up and about tomorrow. * Have a responsible person stay with you the rest of today. * You may have had an I.V. today. If so, you may take the dressing off later today. Recommendations Call your doctor if: * Trouble breathing * Continuous vomiting for more than 24 hours * Temperature above 101 degrees * Severe abdominal pain or bloating * Pain not relieved by pain medicine ordered * There is increased drainage or redness from any incision * A large amount of rectal bleeding greater than 2-3 tablespoons. (If you had a polyp/s removed or have hemorrhoids, a small amount of blood - from the rectum is to be expected.) * You have any unanswered questions or concerns. IN THE EVENT OF A SERIOUS EMERGENCY, GO TO THE NEAREST EMERGENCY ROOM Your discharge instructions were prepared by provider Ray Vega. Patient Instructions Signature Page Jennifer Robledo Patient (or Guardian) Signature/Date: I have read and understand the instructions given to me by my caregivers. Caregiver/RN/Doctor Signature/Date: The above-named patient and/or guardian has received patient instructions on this date. + Original Patient Signature Page (only) stays with chart. Please make copy for patient.
--- NOTE | 2017-05-13 11:17 | Anesthesiology Progress Note ---
Anesthesia Post Op Note Date & Time May 13, 2017 at 11:17 Vital Signs Pain Intensity: 0 Vital Signs Past 12 Hours Date Time Temp Pulse Resp B/P (MAP) Pulse Ox O2 Delivery O2 Flow Rate FiO2 05/13/17 10:26 36.6 80 18 147/87 (107) 100 Room Air Notes Mental Status: alert / awake / arousable, participated in evaluation Pt Amnestic to Procedure: Yes Nausea / Vomiting: adequately controlled Pain: adequately controlled Airway Patency, RR, SpO2: stable & adequate BP & HR: stable & adequate Hydration State: stable & adequate Anesthetic Complications: no major complications apparent
[2017-05-13 11:30] VITALS: BP 136/93; PULSE 20; O2SAT 100
--- NOTE | 2017-05-14 00:23 | GI REPORT ---
Procedure Date: 05/13/2017 10:45 AM Procedure: Upper GI endoscopy Indications: Epigastric abdominal pain, Heartburn Medicines: See the Anesthesia note for documentation of the administered medications Complications: No immediate complications. Estimated Blood Loss: Estimated blood loss was minimal. Procedure: Pre-Anesthesia Assessment: - Prior to the procedure, a History and Physical was performed, and patient medications, allergies and sensitivities were reviewed. The patient's tolerance of previous anesthesia was reviewed. - The risks and benefits of the procedure and the sedation options and risks were discussed with the patient. All questions were answered and informed consent was obtained. - Patient identification and proposed procedure were verified prior to the procedure by the physician and the nurse. The procedure was verified in the pre-procedure area. - Pre-procedure physical examination revealed no contraindications to sedation. - After reviewing the risks and benefits, the patient was deemed in satisfactory condition to undergo the procedure. After obtaining informed consent, the endoscope was passed under direct vision. Throughout the procedure, the patient's blood pressure, pulse, and oxygen saturations were monitored continuously. The On-site loaner was introduced through the mouth, and advanced to the third part of duodenum. The upper GI endoscopy was accomplished without difficulty. The patient tolerated the procedure well. Findings: The esophagus was normal. The entire examined stomach was normal. Biopsies were taken with a cold forceps for Helicobacter pylori testing. Verification of patient identification for the specimen was done by the physician and nurse using the patient's name and medical record number. Estimated blood loss was minimal. The examined duodenum was normal. The cardia and gastric fundus were normal on retroflexion. Impression: - Normal esophagus. - No esophagitis seen. - Normal stomach. Biopsied. - Normal examined duodenum. Recommendation: - Await pathology results. - Discharge patient to home. Ray Vega M.D. Ray Vega MD 05/13/2017 10:58:10 AM This report has been signed electronically. Note Initiated On: 05/13/2017 10:45 AM I attest to the content of the Intraoperative Record and orders documented therein, exceptions below
== END | disposition home or self-care (01) ==
LOC: C.GI 10:08
PROVIDERS: ATTEND Nurse Practitioner Family
DX: R10.11 Right upper quadrant pain (principal); R10.13 Epigastric pain; R12 Heartburn; K21.9 Gastro-esophageal reflux disease without esophagitis; Z87.440 Personal history of urinary (tract) infections

== ENCOUNTER 2017-09-02 12:43 | Emergency (ER) | payer OTHER ==
[~2017-09-02] VITALS: Ht 165.1 cm; Wt 74.6 kg
[~2017-09-02 12:43] MED LIST changes: -ATROPINE SULFATE 0.1 MG/ML 5ML SYR IV PRN; -EpHEDrine SULFATE INJ 50 MG/ML AMP IV PRN; -LIDOCAINE HCL 2% 2 ML VIAL (20MG/ML) ONE; -PROPOFOL IV EMULSION 10 MG/ML 20 ML VIAL IV ONE; -SODIUM CHLORIDE 0.9% 500ML 500 ML IV ONE
[2017-09-02 12:48] VITALS: TEMP 36.5; Ht 165.1 cm; Wt 74.6 kg
[2017-09-02 13:01] VITALS: O2SAT 100
[2017-09-02] MEDS ORDERED: KETOROLAC TROMETHAMINE 30 MG/ML VIAL IV STA (13:06)
[2017-09-02 13:20] LABS: BASO % 0.3 %; BASO ABS # 0.04 K/uL (0-0.2); EOS % 0.1 %; EOS ABS # 0.02 K/uL (0-0.5); HEMATOCRIT 41.1 % (37-47); HEMOGLOBIN 14.2 g/dL (12.0-16.0); IG# 0.02 K/uL (0.00-0.02); LYMPH % 17.9 %; LYMPH ABS # 2.43 K/uL (1.2-3.4); MEAN CELL VOLUME 92.4 fL (80-100); MEAN CORPUSCULAR HEMOGLOBIN 31.9 pg (25-34); MEAN CORPUSCULAR HGB CONC 34.5 g/dl (32-36); MEAN PLATELET VOLUME 9.2 fL (7.4-10.4); MONO % 3.9 %; MONO ABS # 0.53 K/uL (0.11-0.59); NEUT % 77.7 %; NEUT ABS # 10.55 K/uL (1.4-6.5); PLATELET COUNT 369 K/uL (130-400); RED CELL DISTRIBUTION WIDTH CV 12.5 % (11.5-14.5); RED CELL DISTRIBUTION WIDTH SD 42.6 fL (36.4-46.3); WHITE BLOOD COUNT 13.59 K/uL (4.8-10.8)
--- NOTE | 2017-09-02 13:31 | DIAGNOSTIC IMAGING REPORT ---
CHEST ONE VIEW PORTABLE CLINICAL HISTORY: CHEST PAIN dyspnea COMPARISON STUDY: No previous studies for comparison. FINDINGS: The bones soft tissues and hemidiaphragms are normal. The cardiomediastinal silhouette is normal. The lungs are clear. The pulmonary vasculature is normal. IMPRESSION: Negative chest. The above report was generated using voice recognition software. It may contain grammatical, syntax or spelling errors. Electronically signed by: Jules Sanz M.D. 09/02/2017 1:29 PM Dictated Date/Time: 09/02/2017 1:29 PM
[2017-09-02 13:38] LABS: PTT PATIENT 24.7 SECONDS (21.0-31.0)
[2017-09-02 13:39] LABS: ALBUMIN 4.8 gm/dl (3.4-5.0); ALT/SGPT 45 U/L (12-78); BLOOD UREA NITROGEN 13 mg/dl (7-18); CALCIUM 9.3 mg/dl (8.5-10.1); CARBON DIOXIDE 21 mmol/L (21-32); CREATININE 0.84 mg/dl (0.60-1.20); GLUCOSE 86 mg/dl (70-99); LIPASE 143 U/L (73-393); POTASSIUM 3.6 mmol/L (3.5-5.1); SODIUM 134 mmol/L (136-145)
[2017-09-02] MEDS ORDERED: MoRPHine SULFATE 4 MG/ML 1 ML CARP\\VIAL IV STA (13:40)
[2017-09-02] MEDS ORDERED: ONDANSETRON INJ 2 MG/ML 2 ML VIAL IV STA (13:40)
[2017-09-02 13:44] LABS: ALKALINE PHOSPHATASE 69 U/L (45-117); AST/SGOT 27 U/L (15-37); CKMB 5.5 ng/ml (0.5-3.6); TOTAL PROTEIN 8.8 gm/dl (6.4-8.2)
[2017-09-02] MEDS ORDERED: MoRPHine SULFATE 2 MG/ML CARP ONE (13:55)
[2017-09-02] MEDS ORDERED: CEPHALEXIN MONOHYDRATE 250 MG CAP PO ONE (16:00)
[2017-09-02] MEDS ORDERED: CEPH500C PO (16:06)
--- NOTE | 2017-09-02 16:12 | Cardiology Consultation ---
Cardiology Consultation Date of Service Sep 02, 2017. Cardiology Consultation Indication: Consultation for chest pain History: This is a 26-year-old healthy female who was in her usual state of health this morning and had the sudden onset of severe crushing chest discomfort. 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 After arrival here she has had normal cardiac troponins. No acute changes on her EKG. She was given IV morphine with relief of her pain and she is currently asymptomatic. She does have a long -standing history of reflux and has been on medication for approximately 5 years. Recently she has had recurrent UTIs. She just completed a course of antibiotics approximately a week ago. She has no prior history of heart disease. She has no family history of early heart disease. She has no risk factors. Allergies: Lactose intolerance, salmon, sulfa antibiotics Reported Home Medications Medications Dose Route/Sig Max Daily Dose Days Date Category Keflex (Cephalexin Monohydrate) 500 Mg Cap 500 Mg PO QID 09/02/17 Rx Probiotic (Probiotic Product) 1 Tab Tab 1 Tab PO DAILY 05/12/17 Reported Vitamin B Complex (B-Complex Vitamins) 1 Tab Tab 1 Tab PO DAILY 05/12/17 Reported Protonix (Pantoprazole Sodium) 20 Mg Tab 20 Mg PO QAM 05/12/17 Reported Xanax (Alprazolam) 0.5 Mg Tab 0.25 Mg PO DAILY PRN 03/15/17 Reported Ranitidine [address] (Ranitidine HCl) 150 Mg Tab 150 Mg PO BID 03/15/17 Reported Past medical history: Patient has no prior history of diabetes, hypertension, strokes, hypercholesterolemia or heart disease. She has a long-standing history of reflux. She also has been treated for several urinary tract infections recently. 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 She is a never smoked Family medical history: Noncontributory General: The patient denies weight change, night sweats, fever, chills. Head: The patient denies headache and prior head trauma. Cardiovascular: The patient denies chest pain or chest discomfort, dyspnea on exertion, palpitations, PND, orthopnea, edema, spontaneous shortness of breath, syncope and near syncope. Pulmonary: The patient denies cough, wheeze, pleurisy, hemoptysis, sputum, and excessive snoring. Gastrointestinal: The patient denies nausea, vomiting, diarrhea, constipation, bloating, hematemesis, hematochezia, and abdominal pain. Skin: The patient denies diaphoresis and rash. Musculoskeletal: The patient denies joint pain, joint swelling, myalgia, back pain, neck pain and prior injuries. Neurological: The patient denies prior stroke and seizures Vital Signs Past 12 Hours Date Time Temp Pulse Resp B/P (MAP) Pulse Ox O2 Delivery O2 Flow Rate FiO2 09/02/17 14:37 88 16 125/65 09/02/17 14:33 91 16 96 09/02/17 14:28 96 13 97 09/02/17 14:23 91 14 97 09/02/17 14:18 86 16 97 09/02/17 14:13 100 15 97 09/02/17 14:08 85 15 95 09/02/17 14:03 105 18 98 09/02/17 13:58 110 17 99 09/02/17 13:53 110 12 99 09/02/17 13:48 107 15 99 09/02/17 13:43 115 11 99 09/02/17 13:33 141/74 09/02/17 13:24 134/94 09/02/17 13:13 108 20 99 09/02/17 13:10 122 09/02/17 13:05 147/109 09/02/17 13:03 141/105 09/02/17 13:01 100 Room Air 09/02/17 12:48 36.5 119 18 163/89 100 Room Air General Appearance: Alert and Oriented x3. NAD. Head: Normocephalic Atraumatic. Eyes: PERRLA, EOMI, conjunctiva and sclera clear Neck: Supple. No carotid bruits noted. No JVD. No HJD. Respiratory: Breath sounds clear to auscultation bilaterally. No w/r/r. Cardiovascular: Reg rate and rhythm. S1 and S2 noted. No murmurs, rubs, gallops. PMI non displace. Abdomen: Normal bowel sounds, soft nontender. no abdominal bruits. Extremities: No edema, no clubbing or cyanosis. distal pulses 2/4 bilaterally. Neuro: No focal deficits. Psychiatric: Normal affect. EKG shows a sinus rhythm with clockwise rotation of the heart and is otherwise within normal limits. Last 24 Hours Test 09/02/17 13:02 09/02/17 13:22 09/02/17 13:26 09/02/17 15:17 White Blood Count 13.59 K/uL Red Blood Count 4.45 M/uL Hemoglobin 14.2 g/dL Hematocrit 41.1 % Mean Corpuscular Volume 92.4 fL Mean Corpuscular Hemoglobin 31.9 pg Mean Corpuscular Hemoglobin Concent 34.5 g/dl Platelet Count 369 K/uL Mean Platelet Volume 9.2 fL Neutrophils (%) (Auto) 77.7 % Lymphocytes (%) (Auto) 17.9 % Monocytes (%) (Auto) 3.9 % Eosinophils (%) (Auto) 0.1 % Basophils (%) (Auto) 0.3 % Neutrophils # (Auto) 10.55 K/uL Lymphocytes # (Auto) 2.43 K/uL Monocytes # (Auto) 0.53 K/uL Eosinophils # (Auto) 0.02 K/uL Basophils # (Auto) 0.04 K/uL RDW Standard Deviation 42.6 fL RDW Coefficient of Variation 12.5 % Immature Granulocyte % (Auto) 0.1 % Immature Granulocyte # (Auto) 0.02 K/uL Prothrombin Time 10.0 SECONDS Prothromb Time International Ratio 1.0 Activated Partial Thromboplast Time 24.7 SECONDS Partial Thromboplastin Ratio 1.0 Sodium Level 134 mmol/L Potassium Level 3.6 mmol/L Chloride Level 101 mmol/L Carbon Dioxide Level 21 mmol/L Anion Gap 12.0 mmol/L Blood Urea Nitrogen 13 mg/dl Creatinine 0.84 mg/dl Est Creatinine Clear Calc Drug Dose 104.4 ml/min Estimated GFR () 112.7 Estimated GFR (Non- 97.3 BUN/Creatinine Ratio 15.4 Random Glucose 86 mg/dl Calcium Level 9.3 mg/dl Total Bilirubin 0.3 mg/dl Direct Bilirubin < 0.1 mg/dl Aspartate Amino Transf (AST/SGOT) 27 U/L Alanine Aminotransferase (ALT/SGPT) 45 U/L Alkaline Phosphatase 69 U/L Total Creatine Kinase 235 U/L Creatine Kinase MB 5.5 ng/ml Creatine Kinase MB Ratio 2.3 Total Protein 8.8 gm/dl Albumin 4.8 gm/dl Lipase 143 U/L Human Chorionic Gonadotropin, Qual NEG Bedside D-Dimer 143 ng/mlFEU Bedside Troponin I < 0.030 ng/ml < 0.030 ng/ml Urine Color YELLOW Urine Appearance CLEAR Urine pH 5.5 Urine Specific [place] 1.004 Urine Protein NEG Urine Glucose (UA) NEG Urine Ketones 1+ Urine Occult Blood 1+ Urine Nitrite NEG Urine Bilirubin NEG Urine Urobilinogen NEG Urine Leukocyte Esterase NEG Urine WBC (Auto) /hpf Urine RBC (Auto) /hpf Urine Hyaline Casts (Auto) /lpf Urine Epithelial Cells (Auto) /lpf Urine Bacteria (Auto) Urine RBC 0-4 /hpf Urine WBC 5-10 /hpf Urine Epithelial Cells 5-10 /lpf Urine Bacteria 1+ Impression/recommendations: I think it is highly unlikely that this patient's chest pain was from a cardiac cause. She has no risk factors for heart disease. She has had a long-standing history of GERD and is on both a PPI and H2 sangeetha. I think it is more likely that she had esophageal spasm. I do not believe any additional cardiac testing is indicated. I also believe the patient could be discharged home to outpatient follow-up with her primary care physician.
[2017-09-02 16:29] VITALS: BP 125/65; PULSE 114; O2SAT 96
--- NOTE | 2017-09-02 16:42 | EMERGENCY ROOM VISIT NOTE ---
History Report prepared by Melissa: Julio Logan Under the Supervision of: Dr. Lucas Nash M.D. First contact with patient: 12:51 Chief Complaint: CHEST PAIN Stated Complaint: CHEST PAIN & SHORTNESS OF BREATH Nursing Triage Summary: 45 minutes ago strated having chest pain like someone grabbing it now feels like it is beating out of her chest . feels sob. denies any cardiac hx History of Present Illness The patient is a 26 year old female who presents to the Emergency Room with complaints of sudden onset chest pains that began 45 minutes prior to arrival. The patient states that she was sitting at her work-desk when her symptoms onset suddenly; she was not doing anything strenuous/stressful. She described the pain as a "squeezing/pressure" pain. She rates the current discomfort as a 5 /10 in severity and adds that it is now intermittent, but notes that it was a constant 10/10 originally. When the pain first onset there was radiation into her neck and arm. When she stood up from her desk today before the chest pain began she did get lightheaded. This lightheadedness has resolved at this time. She denies any flu-like symptoms, but is experiencing UTI symptoms. She did have a kidney infection a few weeks ago and was given an antibiotic for this. Her LNMP was 1 week ago and normal. She denies any other LOC, headache, fevers, chills, diaphoresis, visual changes, neck pain, nausea, vomiting, abdominal pain , back pain, melena, hematochezia, urinary symptoms, numbness, weakness, lymphadenopathy, rash, prolonged travel, leg swelling, personal or family history of DVT/PE/aneurysm, or other complaints. 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 A total of ten systems were reviewed and were otherwise negative. Past Medical & Surgical Medical Problems: (1) Acid reflux (2) Anxiety Family History Heart disease Patient notes Heart Disease in all 4 grandparents. Myocardial infarctions in her 2 of her Grandparents were younger than 30 years of age. Social History Smoking Status: Never Smoker Alcohol Use: none Drug Use: none Occupation Status: employed Current/Historical Medications Scheduled B-Complex Vitamins (Vitamin B Complex), 1 TAB PO DAILY Cephalexin Monohydrate (Keflex), 500 MG PO QID Pantoprazole Sodium (Protonix), 20 MG PO QAM Probiotic Product (Probiotic), 1 TAB PO DAILY Ranitidine HCl (Ranitidine [address]), 150 MG PO BID Scheduled PRN Alprazolam (Xanax), 0.25 MG PO DAILY PRN for Anxiety Allergies Coded Allergies: [place] (Verified Allergy, Severe, THROAT SWELLED, 05/12/17) Sulfa Antibiotics (Verified Allergy, Mild, RASH, 05/12/17) Lactose Intolerance (GI) (Verified Adverse Reaction, Unknown, ABDOMINAL PAIN, 05/12/17) Physical Exam Vital Signs Date Time Temp Pulse Resp B/P (MAP) Pulse Ox O2 Delivery O2 Flow Rate FiO2 09/02/17 16:29 114 16 125/65 96 09/02/17 16:11 122 09/02/17 14:37 88 16 125/65 09/02/17 14:33 91 16 96 09/02/17 14:28 96 13 97 09/02/17 14:23 91 14 97 09/02/17 14:18 86 16 97 09/02/17 14:13 100 15 97 09/02/17 14:08 85 15 95 09/02/17 14:03 105 18 98 09/02/17 13:58 110 17 99 09/02/17 13:53 110 12 99 09/02/17 13:48 107 15 99 09/02/17 13:43 115 11 99 09/02/17 13:33 141/74 09/02/17 13:24 134/94 09/02/17 13:13 108 20 99 09/02/17 13:10 122 09/02/17 13:05 147/109 09/02/17 13:03 141/105 09/02/17 13:01 100 Room Air 09/02/17 12:48 36.5 119 18 163/89 100 Room Air Physical Exam GENERAL: Awake, alert, uncomfortable appearing, in no acute distress HENT: Normocephalic, atraumatic. Oropharynx unremarkable. EYES: Normal conjunctiva. Sclera non-icteric. NECK: Supple. No nuchal rigidity. FROM. No JVD. RESPIRATORY: Clear to auscultation. CARDIAC: Tachycardic rate with a normal rhythm. Extremities warm and well perfused. Pulses equal. ABDOMEN: Soft, non-distended. No tenderness to palpation. No rebound or guarding. No masses. RECTAL: Deferred. MUSCULOSKELETAL: Chest examination reveals no tenderness. The back is symmetrical on inspection without obvious abnormality. There is no CVA tenderness to palpation. No joint edema. LOWER EXTREMITIES: Calves are equal size bilaterally and non-tender. No edema. No discoloration. NEURO: Normal sensorium. No sensory or motor deficits noted. SKIN: No rash or jaundice noted. Medical Decision & Procedures ER Provider Diagnostic Interpretation: Radiology results as stated below per my review and radiologist interpretation: CHEST ONE VIEW PORTABLE CLINICAL HISTORY: CHEST PAIN dyspnea COMPARISON STUDY: No previous studies for comparison. FINDINGS: The bones soft tissues and hemidiaphragms are normal. The cardiomediastinal silhouette is normal. The lungs are clear. The pulmonary vasculature is normal. IMPRESSION: Negative chest. The above report was generated using voice recognition software. It may contain grammatical, syntax or spelling errors. Electronically signed by: Jules Sanz M.D. 09/02/2017 1:29 PM Dictated Date/Time: 09/02/2017 1:29 PM Laboratory Results 09/02/17 13:02 Red Blood Count 4.45, Mean Corpuscular Volume 92.4, Mean Corpuscular Hemoglobin 31.9, Mean Corpuscular Hemoglobin Concent 34.5, Mean Platelet Volume 9.2, Neutrophils (%) (Auto) 77.7, Lymphocytes (%) (Auto) 17.9, Monocytes (%) (Auto) 3.9, Eosinophils (%) (Auto) 0.1, Basophils (%) (Auto) 0.3, Neutrophils # (Auto) 10.55, Lymphocytes # (Auto) 2.43, Monocytes # (Auto) 0.53, Eosinophils # (Auto) 0.02, Basophils # (Auto) 0.04 09/02/17 13:02 Test 09/02/17 13:02 09/02/17 13:22 09/02/17 13:26 09/02/17 15:17 White Blood Count 13.59 K/uL (4.8-10.8) Red Blood Count 4.45 M/uL (4.2-5.4) Hemoglobin 14.2 g/dL (12.0-16.0) Hematocrit 41.1 % (37-47) Mean Corpuscular Volume 92.4 fL (80-100) Mean Corpuscular Hemoglobin 31.9 pg (25-34) Mean Corpuscular Hemoglobin Concent 34.5 g/dl (32-36) Platelet Count 369 K/uL (130-400) Mean Platelet Volume 9.2 fL (7.4-10.4) Neutrophils (%) (Auto) 77.7 % Lymphocytes (%) (Auto) 17.9 % Monocytes (%) (Auto) 3.9 % Eosinophils (%) (Auto) 0.1 % Basophils (%) (Auto) 0.3 % Neutrophils # (Auto) 10.55 K/uL (1.4-6.5) Lymphocytes # (Auto) 2.43 K/uL (1.2-3.4) Monocytes # (Auto) 0.53 K/uL (0.11-0.59) Eosinophils # (Auto) 0.02 K/uL (0-0.5) Basophils # (Auto) 0.04 K/uL (0-0.2) RDW Standard Deviation 42.6 fL (36.4-46.3) RDW Coefficient of Variation 12.5 % (11.5-14.5) Immature Granulocyte % (Auto) 0.1 % Immature Granulocyte # (Auto) 0.02 K/uL (0.00-0.02) Prothrombin Time 10.0 SECONDS (9.0-12.0) Prothromb Time International Ratio 1.0 (0.9-1.1) Activated Partial Thromboplast Time 24.7 SECONDS (21.0-31.0) Partial Thromboplastin Ratio 1.0 Anion Gap 12.0 mmol/L (3-11) Est Creatinine Clear Calc Drug Dose 104.4 ml/min Estimated GFR () 112.7 Estimated GFR (Non- 97.3 BUN/Creatinine Ratio 15.4 (10-20) Calcium Level 9.3 mg/dl (8.5-10.1) Total Bilirubin 0.3 mg/dl (0.2-1) Direct Bilirubin < 0.1 mg/dl (0-0.2) Aspartate Amino Transf (AST/SGOT) 27 U/L (15-37) Alanine Aminotransferase (ALT/SGPT) 45 U/L (12-78) Alkaline Phosphatase 69 U/L (45-117) Total Creatine Kinase 235 U/L (26-192) Creatine Kinase MB 5.5 ng/ml (0.5-3.6) Creatine Kinase MB Ratio 2.3 (0-3.0) Total Protein 8.8 gm/dl (6.4-8.2) Albumin 4.8 gm/dl (3.4-5.0) Lipase 143 U/L (73-393) Human Chorionic Gonadotropin, Qual NEG (NEG) Bedside D-Dimer 143 ng/mlFEU (0-450) Urine Color YELLOW Urine Appearance CLEAR (CLEAR) Urine pH 5.5 (4.5-7.5) Urine Specific [place] 1.004 (1.000-1.030) Urine Protein NEG (NEG) Urine Glucose (UA) NEG (NEG) Urine Ketones 1+ (NEG) Urine Occult Blood 1+ (NEG) Urine Nitrite NEG (NEG) Urine Bilirubin NEG (NEG) Urine Urobilinogen NEG (NEG) Urine Leukocyte Esterase NEG (NEG) Urine WBC (Auto) /hpf (0-5) Urine RBC (Auto) /hpf (0-4) Urine Hyaline Casts (Auto) /lpf (0-5) Urine Epithelial Cells (Auto) /lpf (0-5) Urine Bacteria (Auto) (NEG) Urine RBC 0-4 /hpf (0-4) Urine WBC 5-10 /hpf (0-5) Urine Epithelial Cells 5-10 /lpf (0-5) Urine Bacteria 1+ (NEG) Bedside Troponin I < 0.030 ng/ml (0-0.045) Laboratory results reviewed by me Medications Administered Medications (Trade) Dose Ordered Sig/Richard Route Start Time Stop Time Status Last Admin Dose Admin Ketorolac Tromethamine (Toradol Inj) 15 mg NOW STAT IV 09/02/17 13:06 09/02/17 13:09 DC 09/02/17 13:30 15 MG Ondansetron HCl (Zofran Inj) 4 mg NOW STAT IV 09/02/17 13:40 09/02/17 13:43 DC 09/02/17 13:57 4 MG Morphine Sulfate (MoRPHine SULFATE INJ) 2 mg STK-MED ONCE .ROUTE 09/02/17 13:55 09/02/17 13:56 DC 09/02/17 13:57 2 MG Cephalexin Monohydrate (Keflex Cap) 500 mg NOW ONCE PO 09/02/17 16:00 09/02/17 16:01 DC 09/02/17 16:04 500 MG ECG Per My Interpretation Indication: chest pain Rate (beats per minute): 101 Rhythm: sinus tachycardia Findings: other (No pericarditis, no PVCs, No KEYLA/STD) ED Course 1253: The patient was evaluated in room B12B. A complete history and physical exam was performed. 1306: Ordered Toradol 15 mg IV. 1340: Ordered Zofran 4 mg IV, Morphine Sulfate 2 mg IV. 1425: I checked on the patient at this time. She is feeling better. She rates the severity of her symptoms 08/07 currently. 1524: I discussed the case with Dr. Guillermo - Cardiology. He will come evaluate the patient in the department. 1558: Dr. Guillermo has evaluated the patient. He states there is no need for further cardiac intervention. The patient feels much better. She will be discharged home. I discussed results and discharge instructions: she verbalized understanding and agreement. The patient is ready for discharge. 1600: Ordered Cephalexin 500 mg PO. Medical Decision Triage Nursing notes reviewed. The patient's presentation and history were concerning for chest pain. Etiologies such as cardiac ischemia, aortic dissection, pulmonary embolism, pneumonia, pneumothorax, musculoskeletal, infections, gastrointestinal, pleurisy , esophageal spasm, myocarditis, as well as others were entertained. The patient was evaluated. She was uncomfortable. She was given a dose of Toradol. On reassessment she was still having discomfort. She was given a small dose of morphine and Zofran. She felt much better with this. Her blood pressure improved as did her heart rate. Her CBC showed a mild leukocytosis. Urinalysis showed some signs of infection and she does have some dysuria. She does not have any CVA tenderness to suggest pyelonephritis. Clinically she looks well at this point. Her chemistry panel, LFTs and lipase were unremarkable. The patient had a repeat troponin and ECG performed and these were negative. No signs of pericarditis, ischemia or dysrhythmia. She had her pulse taken at the peak of her symptoms by a physician in her office and it was 120 bpm. This does not sound consistent with a dysrhythmia. She was given a dose of Keflex for her UTI symptoms. She will be placed on a prescription of Keflex. I did discuss the case with Dr. Mima beach. He did evaluate the patient in the emergency department and felt that her cardiac risk factors were extremely low and recommended outpatient follow-up with her primary physician. The patient felt very comfortable with this plan. If she worsens in any way she will be back. I gave my usual and customary discussion regarding this issue. Dr. [facility] The case was discussed and diagnostics were reviewed. The patient was evaluated in the Emergency Room for further treatment. By the evaluation outlined above other emergent etiologies such as those listed in the differential, as well as others, were deemed relatively unlikely. The patient was educated about the findings as listed above. All questions were answered and the patient was pleased with the treatment. Return instructions were outlined and the patient was discharged in stable condition. The patient was referred to her PCP for follow-up for a recheck of the current condition. Medication Reconcilliation Current Medication List: was personally reviewed by me Blood Pressure Screening Patient's blood pressure: Elevated blood pressure Consults Time Called: 1520 Consulting Physician: Dr. Mima Beach Returned Call: 1524 I discussed the case with Dr. Mima Beach. He will come evaluate the patient in the department. Impression Primary Impression: Substernal chest pain Additional Impression: UTI (urinary tract infection) Scribe Attestation The scribe's documentation has been prepared under my direction and personally reviewed by me in its entirety. I confirm that the note above accurately reflects all work, treatment, procedures, and medical decision making performed by me. Departure Information Dispostion Home / Self-Care Prescriptions Cephalexin Monohydrate (Keflex) 500 Mg Cap 500 MG PO QID, #20 CAP Prov: Lucas Nash MD 09/02/17 Referrals Lucas Soares III, M.D. (PCP) Forms HOME CARE DOCUMENTATION FORM, IMPORTANT VISIT INFORMATION Patient Instructions My [facility] Additional Instructions DO NOT drive, drink alcohol, operate machinery, or perform dangerous activities today. You were given medications in the ER that can affect your ability to safely function or operate a vehicle. Ibuprofen(Motrin, Advil) may be used for fever or pain. Use 600mg every six hours as needed. Take with food. Avoid using more than 2400mg in a 24 hour period. Do not use 2400mg per day for more than three consecutive days without physician direction. Prolonged inappropriate use can lead to stomach upset or ulcers. (AND/OR) Acetaminophen(Tylenol) may be used for fever or pain. Use 1000mg every six hours as needed. Avoid using more than 4000mg in a 24 hour period. Cephalexin(Keflex) 500mg: Take one pill four times daily for 5 days for your urine infection. All antibiotics can cause diarrhea. If this occurs and you feel worse or it does not resolve in 1-2 days follow up with your doctor or return to the Emergency Department as this could be signs of serious underlying problems. Any medication can cause an allergic reaction, stop the pills immediately and return to the ER for rash, hives, breathing difficulties, or swelling. Rest and drink plenty of fluids as tolerated. Continue current medications. Avoid strenuous activities and anything that worsens your pain. Resume normal activities once your symptoms resolve. Return to the ER immediately for worsening or persistent chest pain, abdominal pain, vomiting, fevers, chest pains, difficulty breathing, worsening of your condition, or as needed. Follow up with your primary physician in 2-3 days for a recheck of your current condition. Problem Qualifiers
== END 2017-09-02 16:30 | disposition home or self-care (01) ==
LOC: C.EDB 12:44
DX: R07.2 Precordial pain (principal); K21.9 Gastro-esophageal reflux disease without esophagitis; F41.9 Anxiety disorder, unspecified; Z87.440 Personal history of urinary (tract) infections; Z88.2 Allergy status to sulfonamides; Z91.011 Allergy to milk products; Z91.013 Allergy to seafood; Z79.899 Other long term (current) drug therapy; Z82.49 Family history of ischemic heart disease and other diseases of the circulatory system